=== PATIENT | female | born 1990 | race Two or more races ===

== ENCOUNTER 2020-05-01 23:08 | Emergency (ER) | payer OTHER, MEDICAID ==
[~2020-05-01] VITALS: Ht 162.6 cm; Wt 49.9 kg
[2020-05-01] MEDS ORDERED: ONDANSETRON ODT4 MG BC (23:21)
[2020-05-01 23:25] VITALS: BP 123/80
--- NOTE | 2020-05-01 23:25 | Emergency Room Report ---
History of Present Illness General Chief Complaint: General Complaint Source: Patient Present Illness HPI Disclaimer: Please note that this report is being documented using [employer] technology. This can lead to erroneous entry secondary to incorrect interpretation by the dictating instrument. HPI: 29-year-old female presents for evaluation after needlestick injury. 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 Noted minor bleeding and scrubbed out vigorously with soap and water. No prior history of HIV or hepatitis. Unknown status of patient for HIV or hepatitis. Denies pain or swelling at the site of injury. Full range of motion. Denies other pre-existing medical conditions. Otherwise usual state of health. Tetanus is up-to-date. PMH: Denied PSH: Denied Allergies: Denied Social Hx: Denied Allergies: Coded Allergies: No Known Allergies (Unverified , 05/01/20) COVID-19 Screening Contact w/high risk pt: Yes Experienced COVID-19 symptoms?: No COVID-19 Testing performed ENTEROSTOMAL THERAPY NURSE: No Patient History Last Menstrual Period: n/a Nursing Documentation-PMH Past Medical History: No Stated History Review of Systems All Other Systems: negative except mentioned in HPI Physical Exam Vital Signs Date Time Temp Pulse Resp B/P (MAP) Pulse Ox O2 Delivery O2 Flow Rate FiO2 05/01/20 23:17 98.2 85 16 123/80 (94) 98 Room Air General: Awake and alert, no acute distress HEENT: NC/AT. EOMI. Resp: Normal work of breathing Skin: Puncture wound over the left index finger radial aspect. Hemostatic. MSK: Normal tone and bulk. Moving all extremities. No obvious deformity. Full range of motion of digits of left hand. Neuro: Awake and alert. Mentating appropriately Medical Decision Making Diagnostic Impression: Primary Impression: Needle stick injury of finger of left hand ER Course 29 year old female presents for evaluation after needlestick injury. The HIV and hepatitis status of the the source patient is unknown. We will send baseline labs and start patient on postexposure prophylaxis. Her tetanus is up-to-date. Will also prescribe Zofran. Will follow up with human resource as needed for further care and testing. Can return with new or worsening symptoms. Last Vital Signs Date Time Temp Pulse Resp B/P (MAP) Pulse Ox O2 Delivery O2 Flow Rate FiO2 05/01/20 23:17 98.2 85 16 123/80 (94) 98 Room Air Disposition: HOME, SELF-CARE Condition: Stable Scripts Ondansetron Odt* (ZOFRAN ODT*) 4 Mg Tab.rapdis 4 MG BC EVERY 6 HOURS PRN for Nausea & Vomiting, #10 TAB 0 Refills Prov: Saul Gutiérrez MD 05/01/20 Patient Instructions: Needle Stick Injury Additional Instructions: Follow-up with human resources to obtain additional testing, medications and paperwork as needed. Please follow-up with your primary care doctor in the next 1 to 3 days to discuss this emergency department visit and for reevaluation. If you have any new or worsening symptoms please return to the emergency department for reevaluation. Please note that this report is being documented using [employer] technology. This can lead to erroneous entry secondary to incorrect interpretation by the dictating instrument. Saul Gutiérrez MD May 01, 2020 23:25
[2020-05-01] MEDS ORDERED: Isentress 400mg tab ORAL SCH (23:30)
[2020-05-01 23:46] LABS: ANION GAP 7 mmol/L (5-15); BLOOD UREA NITROGEN 10 mg/dL (7-18); CALCIUM 9.4 MG/DL (8.5-10.1); CARBON DIOXIDE 31 MMOL/L (21-32); CHLORIDE 105 MMOL/L (98-107); CREATININE 0.9 MG/DL (0.55-1.30); POTASSIUM 4.2 MMOL/L (3.5-5.1); SODIUM 142 MMOL/L (136-145)
[2020-05-01 23:51] LABS: ALANINE AMINOTRANSFERASE 22 U/L (12-78); ALBUMIN 4.4 G/DL (3.4-5.0); ALKALINE PHOSPHATASE 71 U/L (46-116); AMYLASE 92 U/L (25-115); ASPARTATE AMINO TRANSFERASE 21 U/L (15-37); BILIRUBIN,DIRECT 0.2 MG/DL (0.0-0.3); BILIRUBIN,TOTAL 0.5 MG/DL (0.2-1.0); PHOSPHORUS 3.7 MG/DL (2.5-4.9)
[2020-05-01 23:58] VITALS: BP 105/73
[2020-05-02 00:17] LABS: BASOPHILS % (AUTO) 0.6 % (0.0-2.0); EOSINOPHILS % (AUTO) 0.4 % (0.0-3.0); HEMATOCRIT 42.1 % (37.0-47.0); HEMOGLOBIN 14.3 G/DL (12.0-16.0); LYMPHOCYTES % (AUTO) 13.9 % (20.0-45.0); MEAN CORPUSCULAR VOLUME 89 FL (80-99); MONOCYTES % (AUTO) 4.2 % (1.0-10.0); PLATELET COUNT 301 K/UL (150-450); RED BLOOD COUNT 4.72 M/UL (4.20-5.40); RED CELL DISTRIBUTION WIDTH 12.7 % (11.6-14.8); WHITE BLOOD COUNT 9.3 K/UL (4.8-10.8)
== END 2020-05-01 23:58 | disposition home or self-care (01) ==
LOC: EMR 23:29
DX: S61.231A Puncture wound without foreign body of left index finger without damage to nail, initial encounter (principal); W46.0XXA Contact with hypodermic needle, initial encounter; Y93.89 Activity, other specified; Y92.9 Unspecified place or not applicable
CPT/HCPCS: 80069; 80076; 82150; 85025; 86703; 86803; 87517; 99284